=== PATIENT | female | born 1935 | race Caucasian/White ===

== ENCOUNTER → 2016-10-28 | Outpatient (CLI) | payer MEDICARE, OTHER ==
[~2016-10-28] MED LIST: AMOX1TAB12 PO; AZEL6DRO EACHEYE; B2/V1TAB PO; CALC3.7S2; CALC500T47 PO; CHOL100015 PO; DEXL60CA PO; FLUT1DIS PO; GABA300C10 PO; GEMF600T3 PO; LEVO88TA32 PO; MOME17SP NAS; MONT10TA6 PO; POTA99TA8 PO; PRED5TAB25; PROBIOTIC1 EACH PO; RANI150T4 PO; SIMV40TA3 PO; VIT1TABL3 PO
[2016-10-28 13:13] LABS: ASPARTATE AMINO TRANSFERASE 24 U/L (15-37); BLOOD UREA NITROGEN 10 mg/dL (7-18)
== END | disposition home or self-care (01) ==
LOC: CFH 09:45
PROVIDERS: ATTEND Nurse Practitioner Family
DX: E55.9 Vitamin D deficiency, unspecified (principal)
CPT/HCPCS: 36415; 80053; 82306

== ENCOUNTER → 2017-05-11 | Outpatient (CLI) | payer MEDICARE, OTHER ==
[~2017-05-11] MED LIST changes: -CALC500T47 PO; +CALC500T51 PO; -DEXL60CA PO; +DEXL60CA2 PO; -LEVO88TA32 PO; +LEVO88TA43 PO
[2017-05-11 12:17] LABS: HEMATOCRIT 45.4 % (34.6-47.8); HEMOGLOBIN 15.3 g/dL (11.7-16.4)
[2017-05-11 12:55] LABS: ASPARTATE AMINO TRANSFERASE 19 U/L (15-37); BLOOD UREA NITROGEN 14 mg/dL (7-18)
== END | disposition home or self-care (01) ==
LOC: CFH 07:13
PROVIDERS: ATTEND Nurse Practitioner Family
DX: E03.9 Hypothyroidism, unspecified (principal); E78.2 Mixed hyperlipidemia; D64.9 Anemia, unspecified
CPT/HCPCS: 36415; 80053; 80061; 84443; 85025

== ENCOUNTER → 2018-03-30 | Outpatient (CLI) | payer MEDICARE, OTHER ==
[2018-03-30 12:39] LABS: BASOPHILS # (AUTO) 0.07 x10^3/uL (0-0.1); BASOPHILS % (AUTO) 2 % (0-1); EOSINOPHILS # (AUTO) 0.25 x10^3/uL (0-0.4); EOSINOPHILS % (AUTO) 5 % (1-7); LYMPHOCYTES # (AUTO) 0.97 x10^3/uL (1-3.4); LYMPHOCYTES % (AUTO) 20 % (22-44); MD NO; MEAN CORPUSCULAR HEMOGLOBIN 32.8 pg (27.0-34.8); MEAN CORPUSCULAR HGB CONC 33.5 g/dL (32.4-35.8); MEAN CORPUSCULAR VOLUME 97.9 fL (80-100); MEAN PLATELET VOLUME 8.7 fL (7.4-10.4); MONOCYTES % (AUTO) 10 % (2-9); NEUTROPHILS # (AUTO) 3.05 x10^3/uL (1.8-6.8); NEUTROPHILS % (AUTO) 63 % (42-75); PLATELET COUNT 285 x10^3/uL (130-400); RED CELL DISTRIBUTION WIDTH 15.4 % (9.6-15.2)
[2018-03-30 12:48] LABS: ALBUMIN 3.7 g/dL (3.4-5.0); ANION GAP 5 mmol/L (5-15); CALCIUM 8.9 mg/dL (8.5-10.1); CHLORIDE 110 mmol/L (98-107)
[2018-03-30 13:02] LABS: ALANINE AMINOTRANSFERASE 25 U/L (12-78); ALKALINE PHOSPHATASE 132 U/L (45-117); BILIRUBIN,TOTAL 1.4 mg/dL (0.2-1.0); CHOL/HDL RATIO 3.4; CHOLESTEROL, TOTAL 167 mg/dL (140-239); CREATININE 1.09 mg/dL (0.55-1.02); HDL CHOL % 29 % (28-40); HDL CHOLESTEROL (DIRECT) 49 mg/dL (40-60); HEMOGLOBIN A1C 5.6 % (4.2-6.3); LDL CHOLESTEROL,CALCULATED 84 mg/dL (54-169); LDL/HDL RATIO 1.7 (0.5-3.0); THYROID STIMULATING HORMONE 0.174 mIU/L (0.358-3.740); TOTAL PROTEIN 6.8 g/dL (6.4-8.2); TRIGLYCERIDES 170 mg/dL (50-200); VLDL CHOLESTEROL 34 mg/dL (0-25)
== END | disposition home or self-care (01) ==
LOC: CFH 07:14
PROVIDERS: ATTEND Family Medicine
DX: Z13.1 Encounter for screening for diabetes mellitus (principal); E03.9 Hypothyroidism, unspecified; E78.1 Pure hyperglyceridemia
CPT/HCPCS: 36415; 80053; 80061; 83036; 84443; 85025

== ENCOUNTER → 2018-10-01 | Outpatient (CLI) | payer MEDICARE, OTHER ==
[~2018-10-01] MED LIST changes: -GEMF600T3 PO; +GEMF600T8 PO
[2018-10-01 15:58] LABS: BASOPHILS # (AUTO) 0.06 x10^3/uL (0-0.1); BASOPHILS % (AUTO) 1 % (0-1); EOSINOPHILS % (AUTO) 4 % (1-7); LYMPHOCYTES # (AUTO) 1.01 x10^3/uL (1-3.4); LYMPHOCYTES % (AUTO) 22 % (22-44); MD NO; MEAN CORPUSCULAR HEMOGLOBIN 33.6 pg (27.0-34.8); MEAN CORPUSCULAR HGB CONC 33.8 g/dL (32.4-35.8); MEAN CORPUSCULAR VOLUME 99.7 fL (80-100); MEAN PLATELET VOLUME 7.6 fL (7.4-10.4); MONOCYTES % (AUTO) 9 % (2-9); NEUTROPHILS # (AUTO) 2.86 x10^3/uL (1.8-6.8); NEUTROPHILS % (AUTO) 63 % (42-75); PLATELET COUNT 299 x10^3/uL (130-400); RED BLOOD COUNT 4.39 x10^6/uL (3.82-5.3); RED CELL DISTRIBUTION WIDTH 15.5 % (9.6-15.2)
[2018-10-01 16:11] LABS: CHLORIDE 110 mmol/L (98-107)
[2018-10-01 16:30] LABS: ALANINE AMINOTRANSFERASE 35 U/L (12-78); ALBUMIN 3.5 g/dL (3.4-5.0); ALKALINE PHOSPHATASE 138 U/L (45-117); ANION GAP 7 mmol/L (5-15); BILIRUBIN,TOTAL 1.8 mg/dL (0.2-1.0); CALCIUM 8.3 mg/dL (8.5-10.1); CREATININE 0.86 mg/dL (0.55-1.02); TOTAL PROTEIN 6.5 g/dL (6.4-8.2)
== END | disposition home or self-care (01) ==
LOC: CFH 15:17
PROVIDERS: ATTEND Family Medicine
DX: E03.9 Hypothyroidism, unspecified (principal); N18.3 Chronic kidney disease, stage 3 (moderate)
CPT/HCPCS: 36415; 80053; 84443; 85025

== ENCOUNTER 2018-12-05 11:07 | Emergency (ER) | payer MEDICARE, OTHER ==
[~2018-12-05] VITALS: Ht 152.4 cm; Wt 73.0 kg
[2018-12-05] MEDS ORDERED: ALBUTEROL/IPRATROPIUM 2.5MG/0.5MG, 3 ML NPPB ONE (11:30)
--- NOTE | 2018-12-05 11:30 | NUR ---
THIS IS AN 83 YO FEMALE WHO PRESENTS TO THE ER C/O COUGHING, LEFT EAR PAIN AND BILAT REDNESS AND "GOOP" X THE LAST FEW DAYS. PT AO X 4. SKIN PWD. RESP EVEN AND UNLABORED. PT ABLE TO SPEAK IN FULL 7-10 WORD SENTENCES W/O DIFFICULTY. PT ON CONT BP AND O2 MONITORS. ERMD LAW AT BEDSIDE FOR EVAL. CALL LIGHT WITHIN REACH. WILL CONT TO MONITOR PT.
[2018-12-05] MEDS ORDERED: ALBUTEROL/IPRATROPIUM 2.5MG/0.5MG, 3 ML ONE (11:47)
[2018-12-05] MEDS ORDERED: LEVO50TA64 PO (12:01)
[2018-12-05] MEDS ORDERED: GABA300C10 PO (12:01)
[2018-12-05] MEDS ORDERED: LEVO75TA59 PO (12:01)
[2018-12-05 12:54] VITALS: BP 119/55
== END 2018-12-05 12:56 | disposition home or self-care (01) ==
LOC: ED 12:11
DX: J45.31 Mild persistent asthma with (acute) exacerbation (principal); J45.32 Mild persistent asthma with status asthmaticus; H69.92 Unspecified Eustachian tube disorder, left ear; E78.00 Pure hypercholesterolemia, unspecified; E03.9 Hypothyroidism, unspecified; Z90.49 Acquired absence of other specified parts of digestive tract; Z85.038 Personal history of other malignant neoplasm of large intestine
CPT/HCPCS: 71046; 94640; 99283; J7512; J7620

== ENCOUNTER 2018-12-10 12:20 | Inpatient (IN) | payer MEDICARE, OTHER ==
[~2018-12-10] VITALS: Ht 152.4 cm; Wt 70.3 kg
[~2018-12-10 12:20] MED LIST changes: +LEVO50TA64 PO; +LEVO75TA59 PO
--- NOTE | 2018-12-10 12:41 | NUR ---
PT PRESENTS TO ED WITH C/O COUGH AND LEFT EAR ACHE PRESENT FOR APPROX 1.5 WEEKS, SEEN HERE 5 DAYS AGO AND DIAGNOSED WITH BRONCHITIS AND ASTHMA. PT STATES COUGH HAS BEEN PERSISTENT AND SHE NOW HAS LEFT SIDED RIB PAIN PRESENT WITH COUGH. PT A&O, RESPS EVEN, TACHYPNEIC AT RATE 26-30, MILDLY LABORED. MARIA GUADALUPE YOUNG AT BEDSIDE FOR EXAM AT THIS TIME.
--- NOTE | 2018-12-10 12:58 | NUR ---
RT paged to provide breathing tx.
[2018-12-10] MEDS ORDERED: ALBUTEROL/IPRATROPIUM 2.5MG/0.5MG, 3 ML ONE (12:59)
[2018-12-10] MEDS ORDERED: ALBUTEROL/IPRATROPIUM 2.5MG/0.5MG, 3 ML NPPB ONE (13:00)
--- NOTE | 2018-12-10 13:02 | NUR ---
RT AT BEDSIDE, ALL MONITORS IN PLACE. TECH AT BEDSIDE FOR EKG.
[2018-12-10 13:16] LABS: MEAN CORPUSCULAR HGB CONC 33.5 g/dL (32.4-35.8); MEAN CORPUSCULAR VOLUME 95.5 fL (80-100); MEAN PLATELET VOLUME 7.9 fL (7.4-10.4); PLATELET COUNT 289 x10^3/uL (130-400); RED BLOOD COUNT 4.11 x10^6/uL (3.82-5.3); RED CELL DISTRIBUTION WIDTH 12.4 % (9.6-15.2)
[2018-12-10 13:29] LABS: ALANINE AMINOTRANSFERASE 29 U/L (12-78); ALBUMIN 3.1 g/dL (3.4-5.0); ANION GAP 8 mmol/L (5-15); CALCIUM 8.3 mg/dL (8.5-10.1); CHLORIDE 109 mmol/L (98-107); CREATININE 1.08 mg/dL (0.55-1.02)
[2018-12-10 13:33] LABS: ALKALINE PHOSPHATASE 128 U/L (45-117); BILIRUBIN,TOTAL 1.6 mg/dL (0.2-1.0); TOTAL PROTEIN 6.2 g/dL (6.4-8.2); TROPONIN I < 0.015 ng/mL (0.000-0.045)
[2018-12-10 13:53] LABS: MD YES
[2018-12-10 13:56] LABS: BAND#(MANUAL) 0.89 x10^3/uL; BANDS%(MANUAL) 11 % (0-7); LYMPH#(MANUAL) 0.32 x10^3/uL (1-3.4); LYMPHS% (MANUAL) 4 % (22-44); MONOS#(MANUAL) 0.24 x10^3/uL (0.3-2.7); MONOS% (MANUAL) 3 % (2-9); SEG#(MANUAL) 6.64 x10^3/uL (1.8-6.8); SEGS% (MANUAL) 82 % (42-75)
[2018-12-10 13:58] LABS: <PLATELET ESTIMATE> ADEQUATE; <PLT MORPHOLOGY> NORMAL PLT MORPH; <RBC MORPHOLOGY> NORMAL
--- NOTE | 2018-12-10 14:00 | NUR ---
pt became hypoxic, spo2 87% on room air after breathing tx. oxygen applied at 2l/min via nc, pt maintaining sat now at 94%. lincoln jones notified. pt to have cta and be admitted.
--- NOTE | 2018-12-10 14:30 | NUR ---
piv placed by rashawn shepard pt in [place] at this time.
[2018-12-10] MEDS ORDERED: OMNIPAQUE 350 MG/ML, 100ML BOTTLE ONE (14:59)
--- NOTE | 2018-12-10 14:59 | NUR ---
pt notes to RN that she has had diarrhea once daily for last three days, last episode this am [employer]. pt has hx cdiff. special contact precautions in place.
[2018-12-10] MEDS ORDERED: KETOROLAC 30 MG/1 ML IVPush ONE (15:00)
[2018-12-10] MEDS ORDERED: GABA300C PO (15:06)
[2018-12-10] MEDS ORDERED: OSTEOPOROSIS MED PO (15:06)
[2018-12-10] MEDS ORDERED: CHOL400C PO (15:07)
[2018-12-10] MEDS ORDERED: MULT-123 PO (15:08)
[2018-12-10] MEDS ORDERED: VIT1TABL32 PO (15:08)
--- NOTE | 2018-12-10 15:10 | NUR ---
PT A&O, RESPS EVEN AND UNLABORED, REMAIN SHALLOW AT RATE 18-22/MIN. PT DENIES PAIN WITH EXCEPTION TO LEFT RIB PAIN WHICH REACHES UP TO 10/10 ONLY WHEN COUGHING. PT UPDATED WITH POC. CALL LIGHT IN REACH. AWAITING BLOOD CX BEFORE ROCEPHIN ADMIN.
[2018-12-10] MEDS ORDERED: LIDODERM 5% PATCH TD PRN (15:30)
[2018-12-10] MEDS ORDERED: CEFTRIAXONE PMX 1GM/50ML 50 ML IVPB ONE (15:30)
[2018-12-10] MEDS ORDERED: hydrALAzine 20 MG/ML, 1ML IVPush PRN (15:30)
[2018-12-10] MEDS ORDERED: ACETAMINOPHEN 325 MG TABLET PO PRN (15:30)
[2018-12-10] MEDS ORDERED: DOCUSATE 100 MG CAPSULE PO PRN (15:30)
[2018-12-10] MEDS: CEFTRIAXONE PMX 1GM/50ML 50 ML IV SCH (15:30)
[2018-12-10] MEDS ORDERED: ONDANSETRON ODT 4 MG PO PRN (15:30)
[2018-12-10] MEDS ORDERED: KETOROLAC 30 MG/1 ML ONE (15:35)
[2018-12-10] MEDS ORDERED: CEFTRIAXONE PMX 1GM/50ML 50 ML ONE (15:35)
[2018-12-10 16:01] LABS: HEMOGLOBIN A1C 5.4 % (4.2-6.3)
--- NOTE | 2018-12-10 16:11 | NUR ---
report given to DONALD Licona. pt awaiting transport to room 422.
[2018-12-10] MEDS ORDERED: ALBUTEROL SULFATE 2.5 MG/3 ML NPPB PRN (16:30)
--- NOTE | 2018-12-10 16:30 | NUR ---
PT A&O, RESPS EVEN AND UNLABORED. PT DENIES PAIN AT THIS TIME. ROOM 422 NOT READY AT THIS TIME, PT AWAITING TRANSPORT ONCE ROOM CLEAN.
--- NOTE | 2018-12-10 16:36 | NUR ---
PHARMACY CALLED TO VERIFY MEDS ORDERED BY HOSPITALIST.
[2018-12-10] MEDS ORDERED: methylPREDNISolone 4mg DOSE PACK PO ONE (18:00)
[2018-12-10] MEDS ORDERED: methylPREDNISolone 4mg DOSE PACK ONE (18:08)
[2018-12-10 18:26] VITALS: BP 136/73
[2018-12-10] MEDS: AZITHROMYCIN 500 MG in SODIUM CHLORIDE 0.9% 250 ML IV SCH (18:34)
[2018-12-10] MEDS: HEPARIN 5,000 UNITS/ML, 1ML SQ SCH (18:34)
[2018-12-10] MEDS: BUDESONIDE 0.5 MG/2 ML INHA NPPB SCH (18:48)
[2018-12-10] MEDS: ALBUTEROL SULFATE 2.5 MG/3 ML NPPB SCH (18:48)
[2018-12-10 19:32] VITALS: BP 104/65
[2018-12-10] MEDS: GUAIFENESIN/DM 200-20MG, 10ML UDC PO PRN (20:04)
[2018-12-10] MEDS: CALCIUM CARBONATE 500 MG TABLET PO SCH (20:07)
[2018-12-10] MEDS: GABAPENTIN 300 MG CAPSULE PO SCH (20:07)
[2018-12-10] MEDS: FLUTICASONE PO SCH (20:08)
[2018-12-10] MEDS: SALMETEROL PO SCH (20:08)
[2018-12-10] MEDS: [UNRECOGNIZED DRUG - OTHER] PO SCH (20:08)
[2018-12-10 21:32] LABS: MICROSCOPIC NOT IND
[2018-12-10 21:37] LABS: CULTURE INDICATED? NO
[2018-12-11 01:01] VITALS: BP 132/74
[2018-12-11] MEDS: HEPARIN 5,000 UNITS/ML, 1ML SQ SCH ×3 (02:47→17:57)
[2018-12-11 04:05] LABS: BASOPHILS % (AUTO) 0 % (0-1); EOSINOPHILS % (AUTO) 0 % (1-7); LYMPHOCYTES # (AUTO) 0.38 x10^3/uL (1-3.4); LYMPHOCYTES % (AUTO) 6 % (22-44); MD NO; MEAN CORPUSCULAR HEMOGLOBIN 31.9 pg (27.0-34.8); MEAN CORPUSCULAR HGB CONC 32.8 g/dL (32.4-35.8); MEAN PLATELET VOLUME 8.3 fL (7.4-10.4); MONOCYTES # (AUTO) 0.25 x10^3/uL (0.2-0.8); MONOCYTES % (AUTO) 4 % (2-9); NEUTROPHILS # (AUTO) 6.19 x10^3/uL (1.8-6.8); NEUTROPHILS % (AUTO) 91 % (42-75); PLATELET COUNT 237 x10^3/uL (130-400); RED BLOOD COUNT 3.76 x10^6/uL (3.82-5.3); RED CELL DISTRIBUTION WIDTH 12.2 % (9.6-15.2)
[2018-12-11 04:22] LABS: ALANINE AMINOTRANSFERASE 26 U/L (12-78); ALBUMIN 2.7 g/dL (3.4-5.0); ANION GAP 7 mmol/L (5-15); CALCIUM 7.9 mg/dL (8.5-10.1); CHLORIDE 109 mmol/L (98-107)
[2018-12-11 04:25] LABS: ALKALINE PHOSPHATASE 112 U/L (45-117); BILIRUBIN,TOTAL 0.9 mg/dL (0.2-1.0); TOTAL PROTEIN 5.7 g/dL (6.4-8.2)
[2018-12-11] MEDS: GABAPENTIN 300 MG CAPSULE PO SCH ×4 (06:36→20:59)
[2018-12-11] MEDS: BUDESONIDE 0.5 MG/2 ML INHA NPPB SCH ×2 (07:27→19:50)
[2018-12-11] MEDS: ALBUTEROL SULFATE 2.5 MG/3 ML NPPB SCH ×4 (07:27→19:50)
[2018-12-11 08:13] VITALS: BP 132/91
[2018-12-11] MEDS: SALMETEROL PO SCH ×2 (09:00→21:00)
[2018-12-11] MEDS: FLUTICASONE PO SCH ×2 (09:00→21:00)
[2018-12-11] MEDS: MOMETASONE FUROATE 17 GM NAS SCH (09:00)
[2018-12-11] MEDS: AZELASTINE HCL EACHEYE SCH (09:00)
[2018-12-11] MEDS: [UNRECOGNIZED DRUG - OTHER] PO SCH ×2 (09:00→21:00)
[2018-12-11] MEDS: MULTIVITAMINS/MINERALS TABLET PO SCH (09:40)
[2018-12-11] MEDS: GEMFIBROZIL 600 MG TABLET PO SCH (09:41)
[2018-12-11] MEDS: CHOLECALCIFEROL 400 UNITS TABLET PO SCH (09:41)
[2018-12-11] MEDS: CALCIUM CARBONATE 500 MG TABLET PO SCH ×2 (09:42→20:59)
[2018-12-11 13:46] VITALS: BP 147/73
[2018-12-11] MEDS: CEFTRIAXONE PMX 1GM/50ML 50 ML IV SCH (15:47)
[2018-12-11] MEDS: AZITHROMYCIN 500 MG in SODIUM CHLORIDE 0.9% 250 ML IV SCH (17:57)
[2018-12-11 20:13] VITALS: BP 132/78
[2018-12-11] MEDS: GUAIFENESIN/DM 200-20MG, 10ML UDC PO PRN (20:58)
[2018-12-11] MEDS: SIMVASTATIN 40 MG TABLET PO SCH (20:59)
[2018-12-12 00:46] VITALS: BP 105/61
[2018-12-12] MEDS: HEPARIN 5,000 UNITS/ML, 1ML SQ SCH ×3 (03:38→21:06)
[2018-12-12] MEDS: GABAPENTIN 300 MG CAPSULE PO SCH ×4 (05:32→21:06)
[2018-12-12] MEDS: GUAIFENESIN/DM 200-20MG, 10ML UDC PO PRN (05:32)
[2018-12-12] MEDS: ALBUTEROL SULFATE 2.5 MG/3 ML NPPB SCH ×4 (07:15→19:24)
[2018-12-12] MEDS: BUDESONIDE 0.5 MG/2 ML INHA NPPB SCH ×2 (07:15→19:24)
[2018-12-12 08:05] VITALS: BP 125/69
[2018-12-12] MEDS: SIMVASTATIN 40 MG TABLET PO SCH (08:51)
[2018-12-12] MEDS: CALCIUM CARBONATE 500 MG TABLET PO SCH ×2 (08:51→21:06)
[2018-12-12] MEDS: MULTIVITAMINS/MINERALS TABLET PO SCH (08:51)
[2018-12-12] MEDS: MOMETASONE FUROATE 17 GM NAS SCH (08:51)
[2018-12-12] MEDS: GEMFIBROZIL 600 MG TABLET PO SCH (08:51)
[2018-12-12] MEDS: CHOLECALCIFEROL 400 UNITS TABLET PO SCH (08:51)
[2018-12-12] MEDS: AZELASTINE HCL EACHEYE SCH (08:51)
[2018-12-12] MEDS: FLUTICASONE PO SCH ×2 (08:52→21:07)
[2018-12-12] MEDS: SALMETEROL PO SCH ×2 (08:52→21:07)
[2018-12-12] MEDS: [UNRECOGNIZED DRUG - OTHER] PO SCH ×2 (08:52→21:07)
[2018-12-12] MEDS: LIDODERM 5% PATCH TD SCH (10:19)
[2018-12-12] MEDS: GUAIFENESIN/COD200MG-20MG/10ML LIQUID PO PRN ×3 (10:20→22:35)
[2018-12-12] MEDS ORDERED: methylPREDNISolone SOD SUCC 125 MG/2 ML IVPush ONE (10:30)
[2018-12-12 13:15] LABS: MEAN CORPUSCULAR HEMOGLOBIN 32.8 pg (27.0-34.8); MEAN CORPUSCULAR HGB CONC 33.8 g/dL (32.4-35.8); MEAN CORPUSCULAR VOLUME 96.8 fL (80-100); MEAN PLATELET VOLUME 8.1 fL (7.4-10.4); PLATELET COUNT 324 x10^3/uL (130-400); RED BLOOD COUNT 4.07 x10^6/uL (3.82-5.3); RED CELL DISTRIBUTION WIDTH 12.4 % (9.6-15.2)
[2018-12-12 13:25] LABS: ANION GAP 7 mmol/L (5-15); CALCIUM 8.8 mg/dL (8.5-10.1); CHLORIDE 109 mmol/L (98-107); CREATININE 0.85 mg/dL (0.55-1.02)
[2018-12-12 13:30] VITALS: BP 136/74
[2018-12-12 13:44] LABS: BASOPHILS # (AUTO) 0.02 x10^3/uL (0-0.1); BASOPHILS % (AUTO) 0 % (0-1); EOSINOPHILS # (AUTO) 0.02 x10^3/uL (0-0.4); EOSINOPHILS % (AUTO) 0 % (1-7); LYMPHOCYTES # (AUTO) 0.49 x10^3/uL (1-3.4); LYMPHOCYTES % (AUTO) 6 % (22-44); MD SCAN; MONOCYTES # (AUTO) 0.35 x10^3/uL (0.2-0.8); MONOCYTES % (AUTO) 4 % (2-9); NEUTROPHILS # (AUTO) 7.17 x10^3/uL (1.8-6.8); NEUTROPHILS % (AUTO) 89 % (42-75)
[2018-12-12] MEDS: CEFTRIAXONE PMX 1GM/50ML 50 ML IV SCH (16:11)
[2018-12-12] MEDS: AZITHROMYCIN 500 MG in SODIUM CHLORIDE 0.9% 250 ML IV SCH (18:18)
[2018-12-12 19:40] VITALS: BP 117/70
[2018-12-13 01:51] VITALS: BP 128/72
[2018-12-13] MEDS: GABAPENTIN 300 MG CAPSULE PO SCH ×2 (05:43→10:41)
[2018-12-13] MEDS: HEPARIN 5,000 UNITS/ML, 1ML SQ SCH ×2 (05:43→13:22)
[2018-12-13] MEDS: BUDESONIDE 0.5 MG/2 ML INHA NPPB SCH (06:50)
[2018-12-13] MEDS: ALBUTEROL SULFATE 2.5 MG/3 ML NPPB SCH ×3 (06:50→14:45)
[2018-12-13 08:07] VITALS: BP 121/65
[2018-12-13] MEDS: AZELASTINE HCL EACHEYE SCH (08:17)
[2018-12-13] MEDS: FLUTICASONE PO SCH (08:17)
[2018-12-13] MEDS: MOMETASONE FUROATE 17 GM NAS SCH (08:17)
[2018-12-13] MEDS: [UNRECOGNIZED DRUG - OTHER] PO SCH (08:17)
[2018-12-13] MEDS: CALCIUM CARBONATE 500 MG TABLET PO SCH (08:17)
[2018-12-13] MEDS: SIMVASTATIN 40 MG TABLET PO SCH (08:17)
[2018-12-13] MEDS: SALMETEROL PO SCH (08:17)
[2018-12-13] MEDS: CHOLECALCIFEROL 400 UNITS TABLET PO SCH (08:17)
[2018-12-13] MEDS: GEMFIBROZIL 600 MG TABLET PO SCH (08:17)
[2018-12-13] MEDS: MULTIVITAMINS/MINERALS TABLET PO SCH (08:17)
[2018-12-13] MEDS: LIDODERM 5% PATCH TD SCH (10:42)
[2018-12-13 13:29] VITALS: BP 136/76
[2018-12-13] MEDS ORDERED: FLUT1DIS PO (14:10)
[2018-12-13] MEDS ORDERED: METH4TAB2 PO (14:10)
[2018-12-13] MEDS ORDERED: LIDO700A20 TD (14:10)
[2018-12-13] MEDS ORDERED: AZIT250T PO (14:10)
[2018-12-13] MEDS ORDERED: CEFD300C37 PO (14:10)
[2018-12-13] MEDS ORDERED: Guaifenesin/Cod200mg-20MG/10ML PO (14:17)
[2018-12-13] MEDS ORDERED: ALBU18HF INH (14:18)
[2018-12-13] MEDS ORDERED: LEVOXYL HOMEMEDPO SCH (21:00)
== END 2018-12-13 15:40 | disposition home or self-care (01) | DRG 871 ==
LOC: ED 13:28 → EDIP 15:06 → 4WST 17:24 → DCLOUNGE 12-13 15:25
PROVIDERS: ADMIT Internal Medicine; ATTEND Internal Medicine
DX: A41.9 Sepsis, unspecified organism (principal); J96.21 Acute and chronic respiratory failure with hypoxia; N17.0 Acute kidney failure with tubular necrosis; J15.6 Pneumonia due to other Gram-negative bacteria; E44.0 Moderate protein-calorie malnutrition; J45.901 Unspecified asthma with (acute) exacerbation; J44.0 Chronic obstructive pulmonary disease with (acute) lower respiratory infection; E78.5 Hyperlipidemia, unspecified; G89.29 Other chronic pain; K21.9 Gastro-esophageal reflux disease without esophagitis; J20.9 Acute bronchitis, unspecified; E78.00 Pure hypercholesterolemia, unspecified; E03.9 Hypothyroidism, unspecified; D64.9 Anemia, unspecified; Z87.891 Personal history of nicotine dependence; Z85.038 Personal history of other malignant neoplasm of large intestine; Z88.5 Allergy status to narcotic agent; Z88.8 Allergy status to other drugs, medicaments and biological substances; Z68.30 Body mass index [BMI] 30.0-30.9, adult
CPT/HCPCS: 36415; 71045; 71275; 80048; 80053; 81003; 83036; 83605; 83880; 84145; 84443; 84484; 85025; 87040; 87070; 87081; 87205; 87449; 93005; 94640; G0378; J0456; J0696; J1644; J1885; J7509; J7613; J7620; J7626; Q9967; J2930; J7050

== ENCOUNTER → 2018-12-30 | Outpatient (CLI) | payer MEDICARE, OTHER ==
[~2018-12-30] MED LIST changes: +ALBU18HF INH; +AZIT250T PO; +CEFD300C37 PO; +CHOL400C PO; +GABA300C PO; +Guaifenesin/Cod200mg-20MG/10ML PO; +LIDO700A20 TD; +METH4TAB2 PO; +MULT-123 PO; +OSTEOPOROSIS MED PO; +VIT1TABL32 PO
[2018-12-30 12:38] LABS: BASOPHILS # (AUTO) 0.13 x10^3/uL (0-0.1); BASOPHILS % (AUTO) 2 % (0-1); EOSINOPHILS # (AUTO) 0.02 x10^3/uL (0-0.4); EOSINOPHILS % (AUTO) 0 % (1-7); LYMPHOCYTES % (AUTO) 12 % (22-44); MD NO; MEAN CORPUSCULAR HEMOGLOBIN 32.1 pg (27.0-34.8); MEAN CORPUSCULAR HGB CONC 32.7 g/dL (32.4-35.8); MEAN CORPUSCULAR VOLUME 98.2 fL (80-100); MEAN PLATELET VOLUME 8.1 fL (7.4-10.4); MONOCYTES # (AUTO) 0.52 x10^3/uL (0.2-0.8); MONOCYTES % (AUTO) 6 % (2-9); NEUTROPHILS # (AUTO) 6.56 x10^3/uL (1.8-6.8); NEUTROPHILS % (AUTO) 80 % (42-75); PLATELET COUNT 301 x10^3/uL (130-400); RED BLOOD COUNT 4.31 x10^6/uL (3.82-5.3); RED CELL DISTRIBUTION WIDTH 13.3 % (9.6-15.2)
[2018-12-30 12:48] LABS: ALBUMIN 3.4 g/dL (3.4-5.0); ANION GAP 7 mmol/L (5-15); CHLORIDE 110 mmol/L (98-107)
[2018-12-30 13:00] LABS: ALANINE AMINOTRANSFERASE 25 U/L (12-78); ALKALINE PHOSPHATASE 104 U/L (45-117); BILIRUBIN,TOTAL 0.9 mg/dL (0.2-1.0); CREATININE 0.89 mg/dL (0.55-1.02); THYROID STIMULATING HORMONE 0.962 mIU/L (0.358-3.740); TOTAL PROTEIN 6.2 g/dL (6.4-8.2)
== END | disposition home or self-care (01) ==
LOC: CFH 07:23
PROVIDERS: ATTEND Nurse Practitioner Family
DX: R89.9 Unspecified abnormal finding in specimens from other organs, systems and tissues (principal); E40 Kwashiorkor; E03.9 Hypothyroidism, unspecified
CPT/HCPCS: 36415; 80053; 83880; 84443; 85025

== ENCOUNTER 2019-01-12 07:35 | Observation (INO) | payer MEDICARE, OTHER ==
[~2019-01-12] VITALS: Ht 153.2 cm; Wt 54.2 kg
[2019-01-12 08:22] LABS: BASOPHILS # (AUTO) 0.02 x10^3/uL (0-0.1); BASOPHILS % (AUTO) 0 % (0-1); EOSINOPHILS # (AUTO) 0.19 x10^3/uL (0-0.4); EOSINOPHILS % (AUTO) 3 % (1-7); LYMPHOCYTES # (AUTO) 0.51 x10^3/uL (1-3.4); LYMPHOCYTES % (AUTO) 8 % (22-44); MD NO; MEAN CORPUSCULAR HEMOGLOBIN 31.2 pg (27.0-34.8); MEAN CORPUSCULAR HGB CONC 32.8 g/dL (32.4-35.8); MEAN CORPUSCULAR VOLUME 95.2 fL (80-100); MEAN PLATELET VOLUME 7.6 fL (7.4-10.4); MONOCYTES # (AUTO) 0.82 x10^3/uL (0.2-0.8); MONOCYTES % (AUTO) 14 % (2-9); NEUTROPHILS # (AUTO) 4.59 x10^3/uL (1.8-6.8); NEUTROPHILS % (AUTO) 75 % (42-75); PLATELET COUNT 224 x10^3/uL (130-400); RED CELL DISTRIBUTION WIDTH 13.6 % (9.6-15.2)
[2019-01-12 08:36] LABS: ALBUMIN 2.8 g/dL (3.4-5.0); ANION GAP 6 mmol/L (5-15); CALCIUM 8.1 mg/dL (8.5-10.1); CHLORIDE 109 mmol/L (98-107); CREATININE 1.07 mg/dL (0.55-1.02)
[2019-01-12 08:40] LABS: TROPONIN I < 0.015 ng/mL (0.000-0.045)
[2019-01-12] MEDS ORDERED: ALBUTEROL/IPRATROPIUM 2.5MG/0.5MG, 3 ML ONE (08:45)
--- NOTE | 2019-01-12 09:30 | NUR ---
pt still reports mild chest pain, controlled at this time.
[2019-01-12] MEDS ORDERED: MONT10TA6 PO (09:45)
[2019-01-12] MEDS ORDERED: FLUT12HF2 INH (09:45)
[2019-01-12] MEDS ORDERED: ALEN35TA6 PO (09:45)
[2019-01-12] MEDS ORDERED: NITROGLYCERIN 0.4 MG/SPRAY SL PRN (11:00)
[2019-01-12] MEDS ORDERED: ACETAMINOPHEN 325 MG TABLET PO PRN (11:00)
[2019-01-12] MEDS ORDERED: NITROGLYCERIN 0.4 MG BOTTLE (25 TABS) SL PRN (11:00)
[2019-01-12] MEDS ORDERED: ASPIRIN 325 MG TABLET EC PO ONE (11:00)
[2019-01-12] MEDS ORDERED: ONDANSETRON 2MG/ML, 2ML IVP PRN (11:00)
[2019-01-12] MEDS ORDERED: morphine SULFATE 10 MG/ML, 1ML IV PRN (11:00)
--- NOTE | 2019-01-12 11:27 | NUR ---
dr. shelby called to confirm order
[2019-01-12 12:25] LABS: TROPONIN I < 0.015 ng/mL (0.000-0.045)
[2019-01-12] MEDS ORDERED: SODIUM CHLORIDE 0.9% 1,000 ML IV SCH (12:30)
--- NOTE | 2019-01-12 13:30 | NUR ---
[facility] MED AT BEDSIDE TO START MANUEL SCAN
[2019-01-12] MEDS ORDERED: REGADENOSON 0.4 MG/5 ML SYRINGE ONE (14:18)
[2019-01-12] MEDS ORDERED: LEVOTHYROXINE 50 MCG TABLET PO SCH ×2 (15:42→15:44)
[2019-01-12 15:45] VITALS: BP 133/72
[2019-01-12] MEDS: GABAPENTIN 300 MG CAPSULE PO SCH ×2 (15:47→21:07)
[2019-01-12] MEDS ORDERED: ALBUTEROL SULFATE 2.5 MG/3 ML NPPB PRN (16:00)
[2019-01-12 17:13] LABS: TROPONIN I < 0.015 ng/mL (0.000-0.045)
[2019-01-12 19:32] VITALS: BP 126/65
[2019-01-12] MEDS: SALMETEROL INH SCH (21:00)
[2019-01-12] MEDS ORDERED: MONTELUKAST 10 MG TABLET PO SCH (21:00)
[2019-01-12] MEDS: TEMPLATE NON-FORMULARY MED. (Vit A,C & E/Lutein/Minerals** (Ocuvite Tablet**) 1 TAB) PO SCH (21:00)
[2019-01-12] MEDS: FLUTICASONE INH SCH (21:00)
[2019-01-12] MEDS ORDERED: LEVOTHYROXINE 75 MCG TABLET PO SCH (21:00)
[2019-01-12] MEDS: FAMOTIDINE 20 MG TABLET PO SCH (21:08)
[2019-01-12] MEDS: CALCIUM CARBONATE 500 MG TABLET PO SCH (21:08)
[2019-01-12] MEDS: SODIUM CHLORIDE FLUSH 10ML SYR IVF SCH (21:10)
[2019-01-13 01:00] VITALS: BP 116/73
[2019-01-13] MEDS: GABAPENTIN 300 MG CAPSULE PO SCH ×2 (05:31→09:23)
[2019-01-13 06:18] LABS: ANION GAP 7 mmol/L (5-15); CALCIUM 8.3 mg/dL (8.5-10.1); CHLORIDE 111 mmol/L (98-107)
[2019-01-13 06:20] LABS: CHOL/HDL RATIO 3.9; CHOLESTEROL, TOTAL 195 mg/dL (140-239); CREATININE 0.92 mg/dL (0.55-1.02); HDL CHOL % 26 % (28-40); HDL CHOLESTEROL (DIRECT) 50 mg/dL (40-60); LDL CHOLESTEROL,CALCULATED 98 mg/dL (54-169); TRIGLYCERIDES 235 mg/dL (50-200); VLDL CHOLESTEROL 47 mg/dL (0-25)
[2019-01-13 08:05] VITALS: BP 122/77
[2019-01-13] MEDS: SALMETEROL INH SCH (09:00)
[2019-01-13] MEDS: SODIUM CHLORIDE FLUSH 10ML SYR IVF SCH (09:00)
[2019-01-13] MEDS ORDERED: GEMFIBROZIL 600 MG TABLET PO SCH (09:00)
[2019-01-13] MEDS: FLUTICASONE INH SCH (09:00)
[2019-01-13] MEDS ORDERED: CHOLECALCIFEROL 400 UNITS TABLET PO SCH (09:00)
[2019-01-13] MEDS ORDERED: MOMETASONE FUROATE 17 GM NAS SCH (09:00)
[2019-01-13] MEDS: TEMPLATE NON-FORMULARY MED. (Vit A,C & E/Lutein/Minerals** (Ocuvite Tablet**) 1 TAB) PO SCH (09:00)
[2019-01-13] MEDS ORDERED: SIMVASTATIN 40 MG TABLET PO SCH (09:00)
[2019-01-13] MEDS ORDERED: AZELASTINE HCL EACHEYE SCH (09:00)
[2019-01-13] MEDS ORDERED: MULTIVITAMINS/MINERALS TABLET PO SCH (09:00)
[2019-01-13] MEDS: CALCIUM CARBONATE 500 MG TABLET PO SCH (09:22)
[2019-01-13] MEDS: FAMOTIDINE 20 MG TABLET PO SCH (09:23)
[2019-01-13 14:05] VITALS: BP 146/87
[2019-01-13] MEDS ORDERED: LEVOTHYROXINE 50 MCG TABLET PO SCH (21:00)
[2019-01-17] MEDS ORDERED: ALENDRONATE 35 MG TABLET PO ONE (15:30)
== END 2019-01-13 15:35 | disposition home or self-care (01) ==
LOC: ED 08:48 → INTOOBSV 09:17 → EDIP 09:17 → 5SO 15:21 → DCLOUNGE 01-13 15:22
PROVIDERS: ADMIT Family Medicine; ATTEND Family Medicine
DX: R07.89 Other chest pain (principal); J45.909 Unspecified asthma, uncomplicated; E03.9 Hypothyroidism, unspecified; E78.5 Hyperlipidemia, unspecified; K21.9 Gastro-esophageal reflux disease without esophagitis; G89.29 Other chronic pain; M54.9 Dorsalgia, unspecified; Z85.038 Personal history of other malignant neoplasm of large intestine; Z85.828 Personal history of other malignant neoplasm of skin
CPT/HCPCS: 36415; 71046; 78452; 80048; 80061; 82040; 83605; 83880; 84145; 84484; 85025; 87040; 93005; 93017; 94640; 99284; A9502; C9898; G0378; J7030; J2785

== ENCOUNTER → 2019-09-08 | Outpatient (CLI) | payer MEDICARE, OTHER ==
[~2019-09-08] MED LIST changes: +ALEN35TA13 PO; +FLUT12HF2 INH
[2019-09-08 13:16] LABS: CHOL/HDL RATIO 4.3; LDL/HDL RATIO 2.4 (0.5-3.0)
== END | disposition home or self-care (01) ==
LOC: CFH 07:45
PROVIDERS: ATTEND Family Medicine
DX: E78.1 Pure hyperglyceridemia (principal)
CPT/HCPCS: 36415; 80061

== ENCOUNTER → 2020-03-19 | Outpatient (CLI) | payer MEDICARE, OTHER ==
[~2020-03-19] MED LIST changes: +SIMV40TA20 PO; -SIMV40TA3 PO
[2020-03-19 12:57] LABS: BASOPHILS # (AUTO) 0.05 x10^3/uL (0-0.1); BASOPHILS % (AUTO) 2 % (0-1); EOSINOPHILS # (AUTO) 0.21 x10^3/uL (0-0.4); EOSINOPHILS % (AUTO) 6 % (1-7); LYMPHOCYTES # (AUTO) 1.11 x10^3/uL (1-3.4); LYMPHOCYTES % (AUTO) 31 % (22-44); MD NO; MEAN PLATELET VOLUME 8.6 fL (7.4-10.4); MONOCYTES # (AUTO) 0.41 x10^3/uL (0.2-0.8); MONOCYTES % (AUTO) 11 % (2-9); NEUTROPHILS # (AUTO) 1.82 x10^3/uL (1.8-6.8); NEUTROPHILS % (AUTO) 51 % (42-75); PLATELET COUNT 246 x10^3/uL (130-400); RED BLOOD COUNT 4.89 x10^6/uL (3.82-5.3); RED CELL DISTRIBUTION WIDTH 12.4 % (9.6-15.2)
[2020-03-19 13:21] LABS: CHLORIDE 115 mmol/L (98-107)
[2020-03-19 13:43] LABS: ALANINE AMINOTRANSFERASE 27 U/L (12-78); ALBUMIN 3.8 g/dL (3.4-5.0); ALKALINE PHOSPHATASE 143 U/L (45-117); ANION GAP 7 mmol/L (5-15); BILIRUBIN,TOTAL 1.4 mg/dL (0.2-1.0); CALCIUM 8.7 mg/dL (8.5-10.1); CHOL/HDL RATIO 5.9; CHOLESTEROL, TOTAL 234 mg/dL (140-239); CREATININE 0.91 mg/dL (0.55-1.02); HDL CHOL % 17 % (28-40); HDL CHOLESTEROL (DIRECT) 40 mg/dL (40-60); LDL CHOLESTEROL,CALCULATED 153 mg/dL (54-169); LDL/HDL RATIO 3.8 (0.5-3.0); TOTAL PROTEIN 6.6 g/dL (6.4-8.2); TRIGLYCERIDES 205 mg/dL (50-200); VLDL CHOLESTEROL 41 mg/dL (0-25)
== END | disposition home or self-care (01) ==
LOC: CFH 07:15
PROVIDERS: ATTEND Family Medicine
DX: E78.1 Pure hyperglyceridemia (principal); E03.9 Hypothyroidism, unspecified; N18.3 Chronic kidney disease, stage 3 (moderate)
CPT/HCPCS: 36415; 80053; 80061; 84443; 85025

== ENCOUNTER → 2020-04-02 | Outpatient (CLI) | payer MEDICARE, OTHER ==
[2020-04-02 15:50] LABS: ALANINE AMINOTRANSFERASE 31 U/L (12-78); ALBUMIN 3.5 g/dL (3.4-5.0); ANION GAP 7 mmol/L (5-15); CALCIUM 8.6 mg/dL (8.5-10.1); CHLORIDE 114 mmol/L (98-107); CREATININE 0.99 mg/dL (0.55-1.02)
[2020-04-02 15:52] LABS: ALKALINE PHOSPHATASE 128 U/L (45-117); BILIRUBIN,TOTAL 1.3 mg/dL (0.2-1.0); TOTAL PROTEIN 6.3 g/dL (6.4-8.2)
== END | disposition home or self-care (01) ==
LOC: CFH 13:35
PROVIDERS: ATTEND Family Medicine
DX: R79.89 Other specified abnormal findings of blood chemistry (principal)
CPT/HCPCS: 36415; 80053

== ENCOUNTER 2020-12-25 12:04 | Emergency (ER) | payer MEDICARE, OTHER ==
[~2020-12-25] VITALS: Ht 152.4 cm; Wt 64.3 kg
[~2020-12-25 12:04] MED LIST changes: -ALEN35TA13 PO; +ALEN35TA49 PO; +GEMF-31 PO; -GEMF600T8 PO
--- NOTE | 2020-12-25 12:21 | NUR ---
BRUISE R LEG, PCP SENT HER HERE TO R/O DVT. VIKI AVENDAÑO TO BEDSIDE FOR EVALUATION. BRUSING ON R. CALF. CMS INTACT PEDAL PULSE +2. PT POSTIONED TO COMFORT. VSS. FLETCHER.
[2020-12-25 12:22] VITALS: BP 139/67
--- NOTE | 2020-12-25 12:35 | NUR ---
us at bedside
--- NOTE | 2020-12-25 13:59 | NUR ---
poc reviewed with patient (what to watch for/when and how to f/u)-teach back successful
== END 2020-12-25 14:01 | disposition home or self-care (01) ==
LOC: ED 13:50
DX: S80.11XA Contusion of right lower leg, initial encounter (principal); J44.9 Chronic obstructive pulmonary disease, unspecified; E03.9 Hypothyroidism, unspecified; E78.00 Pure hypercholesterolemia, unspecified; Z85.038 Personal history of other malignant neoplasm of large intestine; X58.XXXA Exposure to other specified factors, initial encounter; Y93.89 Activity, other specified; Y92.89 Other specified places as the place of occurrence of the external cause; Y99.8 Other external cause status
CPT/HCPCS: 99284

== ENCOUNTER 2021-02-16 08:57 | Emergency (ER) | payer MEDICARE, OTHER ==
[~2021-02-16] VITALS: Ht 160 cm; Wt 65.0 kg
--- NOTE | 2021-02-16 09:14 | NUR ---
MED STUDENT AT BS
--- NOTE | 2021-02-16 09:17 | NUR ---
PT C/O GLF, STATES SHE SLIPPED ON HER STEP OUTSIDE AND LANDED ON HER RIGHT SIDE. C/O R-SHOULDER/BACK PAIN. STATES HER GLASSES LENSE FELL OUT, SMALL LAC ON RIGHT EYELID. DENIES LOC.
--- NOTE | 2021-02-16 09:33 | NUR ---
ERP AT BS
[2021-02-16] MEDS ORDERED: HYDROcodone/APAP 5/325 TABLET ONE (09:40)
--- NOTE | 2021-02-16 09:42 | NUR ---
PT MEDICATED PER EMAR. VSS/NADN. CALL LIGHT WITHIN REACH
--- NOTE | 2021-02-16 09:50 | NUR ---
PT TO IMAGING
[2021-02-16] MEDS ORDERED: HYDROcodone/APAP 5/325 TABLET PO ONE (10:00)
--- NOTE | 2021-02-16 10:00 | NUR ---
PT BACK FROM IMAGING, CONNECTED TO MONITORS. CALL LIGHT WITHIN REACH
[2021-02-16] MEDS ORDERED: KETOROLAC 30 MG/1 ML ONE (10:09)
[2021-02-16] MEDS ORDERED: KETOROLAC 30 MG/1 ML IM ONE (10:30)
--- NOTE | 2021-02-16 10:44 | NUR ---
XRAY AT BS
--- NOTE | 2021-02-16 11:24 | NUR ---
PT TO CT
--- NOTE | 2021-02-16 11:35 | NUR ---
pt back from CT, connected to monitors. call light within reach. Family at bs
[2021-02-16 12:46] VITALS: BP 112/42
--- NOTE | 2021-02-16 12:46 | NUR ---
Right arm sling provided per .
== END 2021-02-16 12:48 | disposition home or self-care (01) ==
LOC: ED 09:45
DX: S42.291A Other displaced fracture of upper end of right humerus, initial encounter for closed fracture (principal); S09.90XA Unspecified injury of head, initial encounter; W01.0XXA Fall on same level from slipping, tripping and stumbling without subsequent striking against object, initial encounter; Y93.89 Activity, other specified; Y92.009 Unspecified place in unspecified non-institutional (private) residence as the place of occurrence of the external cause; Y99.8 Other external cause status; Z88.5 Allergy status to narcotic agent
CPT/HCPCS: 70450; 73010; 73060; 73090; 96372; 99284; J1885